=== PATIENT | male | born 1975 | race African-American/Black ===

== ENCOUNTER 2020-02-11 23:40 | Emergency (ER) | payer MEDICAID ==
[~2020-02-11] VITALS: Ht 175.3 cm; Wt 68.0 kg
--- NOTE | 2020-02-11 23:43 | NUR ---
BIBA TO ER BED 7
[2020-02-11 23:49] VITALS: BP 142/93
[2020-02-12] MEDS ORDERED: KETOROLAC 15 MG/ML VIAL IM ONE (00:05)
[2020-02-12] MEDS ORDERED: HYDROcodone/APAP 10/325 MG 1 TAB TAB PO ONE (00:05)
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
--- NOTE | 2020-02-12 00:40 | NUR ---
xray at bedside.
--- NOTE | 2020-02-12 00:40 | NUR ---
covering for relief for primary Elaiza . assumed pt care at this time.
[2020-02-12 01:22] LABS: BASOPHILS % (AUTO) 0.2 % (0.0-2.0); EOSINOPHILS % (AUTO) 0.3 % (0.0-4.0); HEMATOCRIT 39.7 % (36-52); HEMOGLOBIN 13.1 g/dL (12.0-18.0); LYMPHOCYTES # (AUTO) 0.7 K/uL (2.0-11.5); LYMPHOCYTES % (AUTO) 10.4 % (20.5-51.1); MEAN CORPUSCULAR HEMOGLOBIN 30 pg (27-31); MEAN CORPUSCULAR HGB CONC 33 g/dL (33-37); MEAN CORPUSCULAR VOLUME 91.2 fL (80-94); MONOCYTES # (AUTO) 0.3 K/uL (0.8-1.0); MONOCYTES % (AUTO) 4.4 % (1.7-9.3); NEUTROPHILS # (AUTO) 5.3 K/uL (1.8-7.7); NEUTROPHILS % (AUTO) 84.7 % (42.2-75.2); PLATELET COUNT (AUTO) 161 K/uL (140-450); RED BLOOD CELL COUNT(AUTO) 4.35 MIL/uL (4.20-6.10); RED CELL DISTRIBUTION WIDTH 13.6 % (11.6-13.7); WHITE BLOOD COUNT (AUTO) 6.3 K/uL (4.8-10.8)
[2020-02-12 01:41] LABS: ANION GAP 13.4 (8-16); CARBON DIOXIDE 25.5 mmol/L (21-32); CREATININE 0.9 mg/dL (0.6-1.3); POTASSIUM 3.9 mmol/L (3.5-5.1)
[2020-02-12 02:16] LABS: PROTHROMBIN TIME 10.2 secs (10.8-13.4)
--- NOTE | 2020-02-12 02:32 | NUR ---
PT RESTING IN BED, CHEST RISE AND FALL NOTED. NO NEW COMPLAINS AT THIS TIME. 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 BED LOCKED AND IN LOWEST POSITION, SIDE RAIL UP X2. ALL NEEDS MET. WILL CONTINUE TO MONITOR.
--- NOTE | 2020-02-12 03:27 | NUR ---
received call back from Shara from [facility]. states okay to admit to med-surg. authorization #: [id number]
--- NOTE | 2020-02-12 03:40 | NUR ---
PT GIRLFRIEND, TORIBIO, CONTACT INFO:
--- NOTE | 2020-02-12 03:49 | NUR ---
ASSISTED PT TO EAT.
[2020-02-12] MEDS ORDERED: ONDANSETRON 4 MG/2 ML VIAL IVP ONE (03:50)
[2020-02-12] MEDS ORDERED: MORPHINE SULFATE 4 MG/ML SYR IVP ONE (03:50)
--- NOTE | 2020-02-12 04:22 | NUR ---
PT REPOSITIONED FOR COMFORT.
--- NOTE | 2020-02-12 04:55 | NUR ---
GAVE REPORT TO [facility], [facility], REGARDING PT STATUS. Addendum: 02/12/20 [facility] 0501 [facility]US.
--- NOTE | 2020-02-12 05:07 | NUR ---
PT SIGNED CONSENT FOR TRANSFER.
[2020-02-12 05:33] VITALS: BP 140/77
--- NOTE | 2020-02-12 05:33 | NUR ---
YISEL PICKED UP PT. VSS.
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
== END 2020-02-12 05:33 | disposition short-term general hospital (02) ==
LOC: MED 23:40
DX: S72.002A Fracture of unspecified part of neck of left femur, initial encounter for closed fracture (principal); G82.20 Paraplegia, unspecified; Z98.890 Other specified postprocedural states; W19.XXXA Unspecified fall, initial encounter; Y93.89 Activity, other specified; Y92.89 Other specified places as the place of occurrence of the external cause; Y99.8 Other external cause status
CPT/HCPCS: 36415; 73502; 73552; 80048; 85025; 85610; 85730; 86886; 86900; 86901; 96372; 96374; 96375; 99284; J1885; J2270; J2405; Q0092; Q0163